=== PATIENT | female | born 1945 | race Asian ===

== ENCOUNTER → 2016-12-25 | Outpatient (CLI) | payer OTHER ==
[~2016-12-25] MED LIST: ASPI81 PO; ATOR40TA28 PO; ERGO400T3 PO; GLIP2.5ER PO; LOSA25TA21 PO; METF500T7 PO
== END | disposition home or self-care (01) ==
LOC: RADPV 09:29
PROVIDERS: ATTEND Legal Medicine
DX: I70.0 Atherosclerosis of aorta (principal)
CPT/HCPCS: 71020

== ENCOUNTER 2017-12-28 19:47 | Emergency (ER) | payer OTHER ==
[~2017-12-28] VITALS: Ht 157.5 cm; Wt 56.8 kg
[~2017-12-28 19:47] MED LIST changes: +LOSA25TA16 PO; -LOSA25TA21 PO
[2017-12-28] MEDS ORDERED: SITA100 PO (20:10)
[2017-12-28] MEDS ORDERED: LOSA50TA25 PO (20:10)
[2017-12-28] MEDS ORDERED: GLIP5 PO (20:10)
[2017-12-28 20:14] LABS: GLUCOSE,POINT OF CARE 211 MG/DL (70-110)
[2017-12-28] MEDS ORDERED: ONDANSETRON HCL 4 MG/2 ML VIAL IVP ONE (21:30)
[2017-12-28] MEDS ORDERED: SODIUM CHLORIDE 0.9% 1,000 ML IV ONE (21:30)
[2017-12-28 21:58] LABS: BASOPHILS % (AUTO) 0.4 % (0.0-2.0); EOSINOPHILS % (AUTO) 1.9 % (1.0-6.0); HEMATOCRIT 37.8 % (36-46); HEMOGLOBIN 12.9 g/dL (12.0-16.0); LYMPHOCYTES # (AUTO) 0.7 K/uL (1.0-4.8); LYMPHOCYTES % (AUTO) 7.1 % (22.0-44.0); MEAN CORPUSCULAR HEMOGLOBIN 28.7 pg (26.0-34.0); MEAN CORPUSCULAR HGB CONC 34.1 G/dL (31.0-37.0); MEAN CORPUSCULAR VOLUME 84 fL (80-100); MONOCYTES # (AUTO) 0.6 K/uL (0.1-1.0); MONOCYTES % (AUTO) 5.8 % (2.0-9.0); NEUTROPHILS % (AUTO) 84.8 % (40.0-70.0); PLATELET COUNT (AUTO) 117 K/uL (150-450); RED BLOOD CELL COUNT(AUTO) 4.48 MIL/uL (4.00-5.20); RED CELL DISTRIBUTION WIDTH 13.7 % (11.5-14.5)
[2017-12-28 22:07] LABS: CALCIUM, TOTAL 8.9 mg/dL (8.8-10.5); CREATININE 0.99 mg/dL (0.60-1.30); POTASSIUM 3.5 mmol/L (3.5-5.1)
[2017-12-28 22:21] LABS: BILIRUBIN,TOTAL 0.8 mg/dL (0.1-1.0); THYROID STIMULATING HORMONE 0.88 uIU/mL (0.36-3.74); TOTAL PROTEIN, SERUM 7.9 g/dL (6.4-8.2)
[2017-12-28 22:34] LABS: ALBUMIN 3.7 g/dL (3.4-5.0)
[2017-12-28 22:58] LABS: D-DIMER 8.06 mg/L FEU (0.00-0.50); INR 1.1 (0.9-1.1); PROTHROMBIN TIME 11.4 SEC (9.4-11.6)
[2017-12-28 23:21] LABS: AMPHET/METH SCREEN,URINE NEGATIVE (NEGATIVE); BARBITURATE SCREEN, URINE NEGATIVE (NEGATIVE); BENZODIAZEPINES SCREEN,URINE NEGATIVE (NEGATIVE); CANNABINOID SCREEN,URINE NEGATIVE (NEGATIVE); COCAINE SCREEN,URINE NEGATIVE (NEGATIVE); METHADONE SCREEN, URINE NEGATIVE (NEGATIVE); OPIATE SCREEN,URINE NEGATIVE (NEGATIVE)
[2017-12-28 23:22] LABS: APPEARANCE,URINE CLEAR (CLEAR); BILIRUBIN,URINE NEGATIVE (NEGATIVE); GLUCOSE, URINE (UA) NEGATIVE (NEGATIVE); KETONES,URINE NEGATIVE (NEGATIVE); LEUKOCYTE ESTERASE ,URINE NEGATIVE (NEGATIVE); NITRATE,URINE NEGATIVE (NEGATIVE); OCCULT BLOOD,URINE SMALL (NEGATIVE); PROTEIN,URINE NEGATIVE (NEGATIVE); UROBILINOGEN,URINE 0.2 mg/dL (<=1.0)
[2017-12-28 23:25] LABS: PHENCYCLIDINE SCREEN,URINE NEGATIVE (NEGATIVE)
[2017-12-28] MEDS ORDERED: SODIUM CHLORIDE 0.9% 100 ML ONE (23:30)
[2017-12-28] MEDS ORDERED: IOVERSOL 350 MG/ML 100 ML VIAL ONE (23:30)
[2017-12-28 23:33] LABS: BACTERIA,URINE None Seen /HPF (None Seen); SQUAMOUS EPITHELIAL CELL,UR Rare /LPF (None Seen); WBC,URINE 0-2 /HPF (0-5)
[2017-12-29] MEDS ORDERED: MECLIZINE HCL 25 MG TABLET PO ONE (04:30)
[2017-12-29 05:36] VITALS: BP 126/76
== END 2017-12-29 07:35 | disposition short-term general hospital (02) ==
LOC: EDUNIT# 19:47 → EMS 19:49 → EDBD 19:49 → EMS 12-29 07:35
DX: E87.1 Hypo-osmolality and hyponatremia (principal); R55 Syncope and collapse; R42 Dizziness and giddiness; R11.2 Nausea with vomiting, unspecified; I10 Essential (primary) hypertension; E11.9 Type 2 diabetes mellitus without complications; E78.00 Pure hypercholesterolemia, unspecified; Z79.82 Long term (current) use of aspirin; Z79.84 Long term (current) use of oral hypoglycemic drugs; Z79.899 Other long term (current) drug therapy
CPT/HCPCS: 36415; 70450; 71045; 80053; 80307; 81001; 82962; 84443; 84484; 85025; 85379; 85610; 85730; 93005; 96361; 96374; 99285; J2405; J7030; J7050; Q9967

== ENCOUNTER → 2020-09-27 | Outpatient (CLI) | payer MEDICARE ==
[~2020-09-27] MED LIST changes: +ASPI-1450 PO; -ASPI81 PO; -ERGO400T3 PO; -GLIP2.5ER PO; +GLIP5 PO; -LOSA25TA16 PO; +LOSA50TA37 PO; +METF-911 PO; -METF500T7 PO; +SITA100 PO
== END | disposition home or self-care (01) ==
LOC: RADPV 08:11
PROVIDERS: ATTEND Legal Medicine
DX: N28.1 Cyst of kidney, acquired (principal); K80.50 Calculus of bile duct without cholangitis or cholecystitis without obstruction; Z90.49 Acquired absence of other specified parts of digestive tract
CPT/HCPCS: 76700

== ENCOUNTER → 2020-10-01 | Outpatient (CLI) | payer MEDICARE ==
[~2020-10-01] MED LIST changes: +MEBROFENIN TC99M/MCL ISOTOPE 1 EA INJ INJ ONE
== END | disposition home or self-care (01) ==
LOC: RADMN 09:05
PROVIDERS: ATTEND Legal Medicine
DX: K80.50 Calculus of bile duct without cholangitis or cholecystitis without obstruction (principal); R10.11 Right upper quadrant pain; Z90.49 Acquired absence of other specified parts of digestive tract
CPT/HCPCS: 78226; A9537 ×2

== ENCOUNTER 2021-06-05 17:58 | Inpatient (IN) | payer MEDICARE, MEDICAID ==
[~2021-06-05] VITALS: Ht 152.4 cm; Wt 59.1 kg
[~2021-06-05 17:58] MED LIST changes: +LOSA-382 PO; -LOSA50TA37 PO; -MEBROFENIN TC99M/MCL ISOTOPE 1 EA INJ INJ ONE
[2021-06-05] MEDS ORDERED: PB/HYOSCY/ATR/SCOP/LIDO/MAALOX 55 ML BOTTLE PO ONE (19:15)
[2021-06-05 19:22] LABS: BASOPHILS % (AUTO) 0.7 % (0.0-2.0); EOSINOPHILS % (AUTO) 2.7 % (1.0-6.0); HEMATOCRIT 31.9 % (36-46); HEMOGLOBIN 10.7 g/dL (12.0-16.0); LYMPHOCYTES # (AUTO) 1.9 K/uL (1.0-4.8); LYMPHOCYTES % (AUTO) 30.9 % (22.0-44.0); MEAN CORPUSCULAR HEMOGLOBIN 28.2 pg (26.0-34.0); MEAN CORPUSCULAR HGB CONC 33.7 G/dL (31.0-37.0); MEAN CORPUSCULAR VOLUME 84 fL (80-100); MONOCYTES # (AUTO) 0.5 K/uL (0.1-1.0); MONOCYTES % (AUTO) 8.8 % (2.0-9.0); NEUTROPHILS # (AUTO) 3.4 K/uL (1.8-7.7); NEUTROPHILS % (AUTO) 56.9 % (40.0-70.0); PLATELET COUNT (AUTO) 231 K/uL (150-450); RED BLOOD CELL COUNT(AUTO) 3.81 MIL/uL (4.00-5.20); RED CELL DISTRIBUTION WIDTH 16.1 % (11.5-14.5)
[2021-06-05 19:30] LABS: CALCIUM, TOTAL 9.3 mg/dL (8.8-10.5); CREATININE 0.97 mg/dL (0.60-1.30); POTASSIUM 4.1 mmol/L (3.5-5.1)
[2021-06-05 19:36] LABS: ALBUMIN 3.3 g/dL (3.4-5.0); BILIRUBIN,TOTAL 0.5 mg/dL (0.1-1.0)
[2021-06-05] MEDS ORDERED: SODIUM CHLORIDE 0.9% 1,000 ML IV ONE ×2 (21:00→21:30)
[2021-06-05] MEDS ORDERED: PIPERACILLIN/TAZO 3.375 GM/D5W 50 ML IV ONE (21:00)
[2021-06-05] MEDS ORDERED: MORPHINE SULFATE 2 MG/ML SYRINGE IVP ONE (21:00)
[2021-06-05] MEDS ORDERED: ONDANSETRON HCL 4 MG/2 ML VIAL IVP PRN (21:30)
[2021-06-05] MEDS ORDERED: MORPHINE SULFATE 2 MG/ML SYRINGE IVP PRN (21:30)
[2021-06-05 21:31] LABS: COVID AG,FIA SOURCE NASOPHARYNGEAL
[2021-06-05 22:06] LABS: GLUCOMETER DEV NAME(LOC) ERT.5; GLUCOSE,POINT OF CARE 137 MG/DL (70-110)
[2021-06-05 23:00] VITALS: BP 157/90
[2021-06-06] MEDS: LABETALOL HCL 100 MG TABLET PO SCH ×3 (00:06→20:15)
[2021-06-06 03:40] VITALS: BP 146/73
[2021-06-06] MEDS: PIPERACILLIN/TAZO 3.375 GM/D5W 50 ML IV SCH ×3 (04:40→20:18)
[2021-06-06 07:11] LABS: GLUCOMETER DEV NAME(LOC) 6N.2; GLUCOSE,POINT OF CARE 184 MG/DL (70-110)
[2021-06-06 07:27] VITALS: BP 123/74
[2021-06-06] MEDS ORDERED: ACETAMINOPHEN 325 MG TABLET PO PRN (08:00)
[2021-06-06] MEDS ORDERED: ALBUTEROL SULFATE 2.5 MG/0.5 ML NEB SOLUTION NEB PRN (08:00)
[2021-06-06] MEDS ORDERED: MAGNESIUM HYDROXIDE SUSPENSION 30 ML UDCUP PO PRN (08:00)
[2021-06-06] MEDS ORDERED: ONDANSETRON HCL 4 MG/2 ML VIAL IVP PRN (08:00)
[2021-06-06] MEDS ORDERED: HydrALAZINE HCL 20 MG/ML VIAL IVP PRN (08:00)
[2021-06-06] MEDS ORDERED: IPRATROPIUM BROMIDE 0.5 MG/2.5 ML NEB SOLUTION NEB PRN (08:00)
[2021-06-06] MEDS: PANTOPRAZOLE SODIUM 40 MG/VIAL IVP SCH (08:38)
[2021-06-06] MEDS: DEXTROSE 5%-0.45% SODIUM CHL 1,000 ML IV SCH ×2 (08:38→18:36)
[2021-06-06] MEDS: DOCUSATE SODIUM 100 MG CAPSULE PO SCH ×2 (08:39→20:14)
[2021-06-06 09:09] LABS: CALCIUM, TOTAL 8.6 mg/dL (8.8-10.5); CREATININE 0.95 mg/dL (0.60-1.30); POTASSIUM 4.2 mmol/L (3.5-5.1)
[2021-06-06] MEDS ORDERED: FentaNYL CITRATE PF 100 MCG/2 ML VIAL IVP ONE (12:00)
[2021-06-06 12:51] LABS: GLUCOMETER DEV NAME(LOC) 6N.2; GLUCOSE,POINT OF CARE 194 MG/DL (70-110)
[2021-06-06] MEDS ORDERED: SODIUM CHLORIDE 0.9% 1,000 ML IV ONE (14:15)
[2021-06-06] MEDS ORDERED: SODIUM CHLORIDE 0.9% 1,000 ML ONE (14:16)
[2021-06-06] MEDS ORDERED: IOTHALAMATE MEGLUMINE 600 MG/ML 50 ML VIAL IVP ONE ×2 (14:17)
[2021-06-06] MEDS ORDERED: FentaNYL CITRATE PF 100 MCG/2 ML VIAL IVP PRN (16:30)
[2021-06-06 16:50] VITALS: BP 117/63
[2021-06-06] MEDS: HYDROCODONE/ACETAMINOPHEN 5-325 MG TABLET PO PRN (17:20)
[2021-06-06] MEDS ORDERED: DEXTROSE 50%-WATER 25 GM/50 ML SYRINGE IVP PRN (18:00)
[2021-06-06 19:40] VITALS: BP 121/66
[2021-06-06] MEDS: OXYGEN THERAPY IH SCH (20:18)
[2021-06-06 23:16] LABS: GLUCOMETER DEV NAME(LOC) 6N.1; GLUCOSE,POINT OF CARE 179 MG/DL (70-110)
[2021-06-06 23:32] VITALS: BP 119/67
[2021-06-06] MEDS: INSULIN LISPRO 100 UNITS/ML SQ PRN (23:42)
[2021-06-06] MEDS: MORPHINE SULFATE 2 MG/ML SYRINGE IVP PRN (23:45)
[2021-06-06 23:51] LABS: GLUCOMETER DEV NAME(LOC) 6N.2; GLUCOSE,POINT OF CARE 245 MG/DL (70-110)
[2021-06-07] MEDS: DEXTROSE 5%-0.45% SODIUM CHL 1,000 ML IV SCH (04:19)
[2021-06-07] MEDS: PIPERACILLIN/TAZO 3.375 GM/D5W 50 ML IV SCH ×3 (04:42→20:53)
[2021-06-07 04:56] VITALS: BP 104/56
[2021-06-07 05:41] LABS: GLUCOMETER DEV NAME(LOC) 6N.2; GLUCOSE,POINT OF CARE 169 MG/DL (70-110)
[2021-06-07] MEDS: INSULIN LISPRO 100 UNITS/ML SQ PRN ×4 (05:58→20:49)
[2021-06-07 07:02] LABS: BASOPHILS % (AUTO) 0.4 % (0.0-2.0); EOSINOPHILS % (AUTO) 3.6 % (1.0-6.0); HEMATOCRIT 30.8 % (36-46); HEMOGLOBIN 10.2 g/dL (12.0-16.0); LYMPHOCYTES # (AUTO) 1.1 K/uL (1.0-4.8); MEAN CORPUSCULAR HEMOGLOBIN 28.2 pg (26.0-34.0); MEAN CORPUSCULAR HGB CONC 33.1 G/dL (31.0-37.0); MEAN CORPUSCULAR VOLUME 85 fL (80-100); MONOCYTES # (AUTO) 0.3 K/uL (0.1-1.0); MONOCYTES % (AUTO) 8.1 % (2.0-9.0); NEUTROPHILS # (AUTO) 2.2 K/uL (1.8-7.7); NEUTROPHILS % (AUTO) 57.9 % (40.0-70.0); PLATELET COUNT (AUTO) 195 K/uL (150-450); RED BLOOD CELL COUNT(AUTO) 3.62 MIL/uL (4.00-5.20); RED CELL DISTRIBUTION WIDTH 16.6 % (11.5-14.5)
[2021-06-07 07:05] LABS: HEMOGLOBIN A1C 7.5 % (3.8-5.6)
[2021-06-07 07:14] LABS: INR 1.1 (0.9-1.1); PROTHROMBIN TIME 11.4 SEC (9.4-11.6)
[2021-06-07 07:18] LABS: ALBUMIN 2.7 g/dL (3.4-5.0); BILIRUBIN,TOTAL 0.9 mg/dL (0.1-1.0); CALCIUM, TOTAL 8.6 mg/dL (8.8-10.5); CREATININE 0.94 mg/dL (0.60-1.30); PHOSPHORUS 3.3 mg/dL (2.5-4.9); POTASSIUM 4.4 mmol/L (3.5-5.1); TOTAL PROTEIN, SERUM 7.6 g/dL (6.4-8.2)
[2021-06-07] MEDS ORDERED: EPHEDrine SULFATE 50 MG/ML VIAL IM ONE (07:33)
[2021-06-07] MEDS ORDERED: PROPOFOL 1% 20 ML VIAL IVP ONE (07:33)
[2021-06-07] MEDS ORDERED: ROCURONIUM BROMIDE 10 MG/ML 5 ML VIAL IVP ONE (07:33)
[2021-06-07] MEDS ORDERED: 0.9% SODIUM CHLORIDE 10 ML VIAL IVP ONE (07:33)
[2021-06-07] MEDS ORDERED: GLUCAGON,HUMAN RECOMBINANT 1 MG VIAL IVP ONE (07:33)
[2021-06-07 08:00] VITALS: BP 119/69
[2021-06-07] MEDS: OXYGEN THERAPY IH SCH ×2 (08:00→20:00)
[2021-06-07] MEDS: DOCUSATE SODIUM 100 MG CAPSULE PO SCH ×2 (08:40→20:53)
[2021-06-07] MEDS: PANTOPRAZOLE SODIUM 40 MG/VIAL IVP SCH (08:40)
[2021-06-07] MEDS: LABETALOL HCL 100 MG TABLET PO SCH ×2 (11:39→20:53)
[2021-06-07 14:26] LABS: GLUCOMETER DEV NAME(LOC) 6N.1; GLUCOSE,POINT OF CARE 226 MG/DL (70-110)
[2021-06-07 15:35] VITALS: BP 142/67
[2021-06-07 20:14] VITALS: BP 139/74
[2021-06-07 20:31] LABS: GLUCOMETER DEV NAME(LOC) 6N.1; GLUCOSE,POINT OF CARE 194 MG/DL (70-110)
[2021-06-07] MEDS: MORPHINE SULFATE 2 MG/ML SYRINGE IVP PRN (20:54)
[2021-06-08] MEDS: HYDROCODONE/ACETAMINOPHEN 5-325 MG TABLET PO PRN (00:35)
[2021-06-08 04:31] LABS: GLUCOMETER DEV NAME(LOC) 6N.2; GLUCOSE,POINT OF CARE 183 MG/DL (70-110)
[2021-06-08 05:00] VITALS: BP 121/65
[2021-06-08] MEDS: PIPERACILLIN/TAZO 3.375 GM/D5W 50 ML IV SCH ×2 (05:12→13:17)
[2021-06-08 05:41] LABS: GLUCOMETER DEV NAME(LOC) 6N.1; GLUCOSE,POINT OF CARE 132 MG/DL (70-110)
[2021-06-08] MEDS: INSULIN LISPRO 100 UNITS/ML SQ PRN ×2 (05:49→11:44)
[2021-06-08] MEDS: OXYGEN THERAPY IH SCH (08:00)
[2021-06-08] MEDS: PANTOPRAZOLE SODIUM 40 MG/VIAL IVP SCH (08:02)
[2021-06-08] MEDS: LABETALOL HCL 100 MG TABLET PO SCH (08:03)
[2021-06-08] MEDS: DOCUSATE SODIUM 100 MG CAPSULE PO SCH (08:03)
[2021-06-08 08:36] VITALS: BP 141/64
[2021-06-08 13:16] LABS: GLUCOMETER DEV NAME(LOC) 6N.1; GLUCOSE,POINT OF CARE 233 MG/DL (70-110)
== END 2021-06-08 14:57 | disposition home or self-care (01) | DRG 439 ==
LOC: EMS 17:58 → 6S 21:26
PROVIDERS: ADMIT Internal Medicine; ATTEND Internal Medicine
PROC: 0FC98ZZ Extirpation of Matter from Common Bile Duct, Via Natural or Artificial Opening Endoscopic (ICD-10-PCS; 2021-06-06)
PROC: 0F798DZ Dilation of Common Bile Duct with Intraluminal Device, Via Natural or Artificial Opening Endoscopic (ICD-10-PCS; principal; 2021-06-06 15:00)
DX: K85.10 Biliary acute pancreatitis without necrosis or infection (principal); E87.1 Hypo-osmolality and hyponatremia; E44.1 Mild protein-calorie malnutrition; I10 Essential (primary) hypertension; E11.65 Type 2 diabetes mellitus with hyperglycemia; D64.9 Anemia, unspecified; E89.0 Postprocedural hypothyroidism; K80.50 Calculus of bile duct without cholangitis or cholecystitis without obstruction; M19.90 Unspecified osteoarthritis, unspecified site; E78.00 Pure hypercholesterolemia, unspecified; Z20.822 Contact with and (suspected) exposure to COVID-19; K21.9 Gastro-esophageal reflux disease without esophagitis; Z90.49 Acquired absence of other specified parts of digestive tract; Z91.013 Allergy to seafood; Z87.442 Personal history of urinary calculi; Z68.25 Body mass index [BMI] 25.0-25.9, adult
CPT/HCPCS: 71045; 74176; 80048; 80053; 82962; 83036; 83690; 83735; 84100; 84145; 84484; 85025; 85610; 87081; 93005; 99285; C9113; J1610; J2270; J2543; J2704; J3010; J3490; J7030; Q9961; 36415-L1; 36415-TC